=== PATIENT | female | born 1950 ===

== ENCOUNTER 2022-01-07 08:32 | Outpatient (CLI) | payer OTHER | END 2022-01-07 08:43 | disposition home or self-care (01) | LOC: MAMO-SONO 08:32 | PROVIDERS: ATTEND Specialist | DX: Z12.31 Encounter for screening mammogram for malignant neoplasm of breast (principal) ==

== ENCOUNTER 2023-02-10 14:16 | Outpatient (CLI) | payer OTHER | END 2023-02-10 14:20 | disposition home or self-care (01) | LOC: MAMO-SONO 14:16 | PROVIDERS: ATTEND Specialist | DX: Z12.31 Encounter for screening mammogram for malignant neoplasm of breast (principal) ==

== ENCOUNTER 2024-04-25 10:41 | Outpatient (CLI) | payer OTHER | END 2024-04-25 10:51 | disposition home or self-care (01) | LOC: MAMO-SONO 10:41 | PROVIDERS: ATTEND Specialist | DX: Z12.31 Encounter for screening mammogram for malignant neoplasm of breast (principal) ==